=== PATIENT | female | born 1985 | race Hispanic/Latino ===

== ENCOUNTER 2016-12-12 21:39 | Emergency (ER) | payer OTHER ==
[2016-12-12 22:01] VITALS: BMI 35.5
[2016-12-12 22:03] VITALS: RESP 18; TEMP 97.8
--- NOTE | 2016-12-12 22:58 | ED PDOC ---
Arrival/HPI - General Chief Complaint: Abdominal Pain Time Seen by Provider: 12/12/16 22:41 Historian: Patient - History of Present Illness Narrative History of Present Illness (Text): 12/12/16 22:57 Rosalind Lazo is a 31 year old female, whose past medical history includes appendectomy and gallstones, who presents to the ED complaining of intermittent upper abdominal/epigastric pain for 1 month. Patient states pain is worsened after eating. Patient reports associated nausea with vomiting last week. Patient has been on omeprazole which she needs. Patient denies any fever, chills, diarrhea, chest pain, urinary symptoms, back pain, headache, dizziness, or any other complaints. PMD: Dr. Tanvir Alanis Symptom Onset: Gradual Symptom Course: Unchanged Activities at Onset: Rest, Light Context: Home Past Medical History - Provider Review Nursing Documentation Reviewed: Yes - Infectious Disease Hx of Infectious Diseases: None - Tetanus Immunization Tetanus Immunization: Up to Date - Past Medical History Past Medical History: No Previous - Cardiac Hx Cardiac Disorders: No - Pulmonary Hx Respiratory Disorders: No - Neurological Hx Neurological Disorder: No - HEENT Hx HEENT Disorder: No Hx Sinusitis: Yes - Renal Hx Renal Disorder: No - Endocrine/Metabolic Hx Endocrine Disorders: No - Hematological/Oncological Hx Blood Disorders: No - Integumentary Hx Dermatological Disorder: No - Musculoskeletal/Rheumatological Hx Musculoskeletal Disorders: No - Gastrointestinal Hx Gastrointestinal Disorders: Yes Hx Gall Bladder Disease: Yes (gall stone) - Genitourinary/Gynecological Hx Genitourinary Disorders: No - Psychiatric Hx Psychophysiologic Disorder: No Hx Substance Use: No - Surgical History Hx Appendectomy: Yes - Anesthesia Hx Anesthesia: Yes Hx Anesthesia Reactions: No Hx Malignant Hyperthermia: No - Suicidal Assessment Feels Threatened In Home Enviroment: No Family/Social History - Physician Review Nursing Documentation Reviewed: Yes Family/Social History: No Known Family HX Smoking Status: Former Smoker Hx Alcohol Use: No Hx Substance Use: No Hx Substance Use Treatment: No Allergies/Home Meds Allergies/Adverse Reactions: Allergies Penicillins Allergy (Verified 12/12/16 22:20) RASH Review of Systems - Physician Review All systems were reviewed & negative as marked: Yes - Review of Systems Constitutional: Normal. absent: Fevers Eyes: Normal ENT: Normal Respiratory: Normal. absent: SOB, Cough Cardiovascular: Normal. absent: Chest Pain Gastrointestinal: Abdominal Pain, Nausea, Vomiting. absent: Diarrhea Genitourinary Female: Normal. absent: Dysuria, Frequency, Hematuria, Urine Output Changes Musculoskeletal: Normal. absent: Back Pain, Neck Pain Skin: Normal. absent: Rash Neurological: Normal. absent: Headache, Dizziness Endocrine: Normal Hemo/Lymphatic: Normal Psychiatric: Normal Physical Exam Vital Signs Reviewed: Yes Vital Signs Temp Pulse Resp BP Pulse Ox 12/13/16 01:53 97.8 F 78 122/76 98 12/12/16 22:02 97.8 F 69 18 113/73 99 Temperature: Afebrile Blood Pressure: Normal Pulse: Regular Respiratory Rate: Normal Appearance: Positive for: Well-Appearing, Non-Toxic, Comfortable Pain Distress: None Mental Status: Positive for: Alert and Oriented X 3 - Systems Exam Head: Present: Atraumatic, Normocephalic Pupils: Present: PERRL Extroacular Muscles: Present: EOMI Conjunctiva: Present: Normal Mouth: Present: Moist Mucous Membranes Neck: Present: Normal Range of Motion Respiratory/Chest: Present: Clear to Auscultation, Good Air Exchange. No: Respiratory Distress, Accessory Muscle Use Cardiovascular: Present: Regular Rate and Rhythm, Normal S1, S2. No: Murmurs Abdomen: Present: Normal Bowel Sounds. No: Tenderness, Distention, Peritoneal Signs Back: Present: Normal Inspection Upper Extremity: Present: Normal Inspection. No: Cyanosis, Edema Lower Extremity: Present: Normal Inspection. No: Edema Neurological: Present: GCS=15, CN II-XII Intact, Speech Normal Skin: Present: Warm, Dry, Normal Color. No: Rashes Psychiatric: Present: Alert, Oriented x 3, Normal Insight, Normal Concentration Medical Decision Making ED Course and Treatment: 12/12/16 22:57 Impression: 31 y/o female c/o upper/epigastric pain intermittently for 1 month. Differential Diagnosis included but are not limited to: gastritis vs. biliary colic Plan: -- US Gallbladder and Pancreas -- Labs, lipase -- UA -- IV fluids -- Pepcid -- Reassess and disposition Prior Visits: Notes and results from previous visits were reviewed. On 08/07/2015, pt was seen in the ED for bilateral eye itching with erythma and yellow discharge. Pt was d/c home. 12/13/16 00:02 Reviewed sono, US Gallbladder and Pancreas shows: Multiple stones within an otherwise unremarkable gallbladder. Fatty infiltration of an enlarged liver. Limited evaluation of the pancreas, secondary to overlying bowel gas. 12/13/16 01:10 On re-evaluation, patient is resting comfortably, and is in no acute distress. Patient is stable for d/c. Patient was instructed to follow up with PMD in 1-2 days for further evaluation or to return to the ED if he develops any new/ worsening symptoms. - Lab Interpretations Lab Results: 12/12/16 23:30 12/12/16 23:30 Lab Results 12/12/16 23:30: Urine Color Yellow, Urine Appearance Clear, Urine pH 6.5, Ur Specific [place] 1.025, Urine Protein Negative, Urine Glucose (UA) Negative, Urine Ketones Negative, Urine Blood Negative, Urine Nitrate Negative, Urine Bilirubin Negative, Urine Urobilinogen 0.2, Ur Leukocyte Esterase Negative, Urine HCG, Qual Negative 12/12/16 23:30: WBC 9.7 D, RBC 4.79, Hgb 14.9, Hct 41.3, MCV 86.2, MCH 31.1, MCHC 36.1, RDW 12.0, Plt Count 277, MPV 9.6 12/12/16 23:30: Sodium 140, Potassium 4.5, Chloride 104, Carbon Dioxide 29, Anion Gap 12, BUN 13, Creatinine 0.8, Est GFR ( Amer) > 60, Est GFR (Non- Af Amer) > 60, Random Glucose 86, Calcium 9.3, Total Bilirubin 0.7, AST 24, ALT 48, Alkaline Phosphatase 67, Total Protein 7.5, Albumin 4.3, Globulin 3.1, Albumin/Globulin Ratio 1.4, Lipase 76 I have reviewed the lab results: Yes - RAD Interpretation Narrative RAD Interpretations (Text): US Gallbladder and Pancreas shows: Liver: Increased in echogenicity and size measuring 18 cm in greatest dimension. No intrahepatic bile duct dilation. Gallbladder: Multiple stones are identified within an otherwise unremarkable gallbladder. Common bile duct: No stones. No dilation, measuring 4.3 mm. Pancreas: Visualization of the pancreas is limited by overlying bowel gas. Right kidney: Unremarkable echogenicity and size measuring 11.5 x 4.8 x 5.1 No obstructing stones. No solid mass. No hydronephrosis. The visualized abdominal aorta is non-aneurysmal. The IVC is patent. IMPRESSION: Multiple stones within an otherwise unremarkable gallbladder. Fatty infiltration of an enlarged liver. Limited evaluation of the pancreas, secondary to overlying bowel gas. Radiology Orders: 12/12/16 22:58 GALLBLADDER & PANCREAS [US] Stat Pmo Business Analyst: Radiologist - Medication Orders Current Medication Orders: Discontinued Medications Famotidine (Pepcid) 20 mg IVP STAT STA Stop: 12/12/16 23:01 Last Admin: 12/13/16 01:16 Dose: 20 mg Sodium Chloride (Sodium Chloride 0.9%) 1,000 mls @ 999 mls/hr IV .Q1H1M STA Stop: 12/13/16 00:00 Last Admin: 12/13/16 01:15 Dose: 999 mls/hr - Scribe Statement The provider has reviewed the documentation as recorded by the Erna Dove Provider Attestation: All medical record entries made by the [place] were at my direction and personally dictated by me. I have reviewed the chart and agree that the record accurately reflects my personal performance of the history, physical exam, medical decision making, and the department course for this patient. I have also personally directed, reviewed, and agree with the discharge instructions and disposition. Disposition/Present on Arrival - Present on Arrival Any Indicators Present on Arrival: No History of DVT/PE: No History of Uncontrolled Diabetes: No Urinary Catheter: No History of Decub. Ulcer: No History Surgical Site Infection Following: None - Disposition Have Diagnosis and Disposition been Completed?: Yes Diagnosis: Gastritis Disposition: HOME/ ROUTINE Disposition Time: 01:03 Patient Plan: Discharge Condition: GOOD Discharge Instructions (ExitCare): Gastritis (ED) Additional Instructions: Take meds as prescribed/follow up with your doctor this week Prescriptions: Omeprazole 20 mg PO DAILY #30 tablet.
[2016-12-12] MEDS ORDERED: Sodium Chloride 0.9% 1,000 ML IV STA (23:00)
--- NOTE | 2016-12-12 23:45 | US ---
EXAM: US Abdomen Limited, Right Upper Quadrant CLINICAL HISTORY: 31 years old, female; Pain; Abdominal pain; Generalized TECHNIQUE: Real-time ultrasound of the right upper quadrant with image documentation. COMPARISON: No relevant prior studies available. FINDINGS: Liver: Increased in echogenicity and size measuring 18 cm in greatest dimension. No intrahepatic bile duct dilation. Gallbladder: Multiple stones are identified within an otherwise unremarkable gallbladder. Common bile duct: No stones. No dilation, measuring 4.3 mm. Pancreas: Visualization of the pancreas is limited by overlying bowel gas. Right kidney: Unremarkable echogenicity and size measuring 11.5 x 4.8 x 5.1 No obstructing stones. No solid mass. No hydronephrosis. The visualized abdominal aorta is non-aneurysmal. The IVC is patent. IMPRESSION: Multiple stones within an otherwise unremarkable gallbladder. Fatty infiltration of an enlarged liver. Limited evaluation of the pancreas, secondary to overlying bowel gas.
[2016-12-13 00:17] LABS: HEMATOCRIT 41.3 % (36.0-48.0); MEAN CELL VOLUME 86.2 fL (80.0-105.0); MEAN CORPUSCULAR HEMOGLOBIN 31.1 pg (25.0-35.0); MEAN CORPUSCULAR HGB CONC 36.1 g/dl (31.0-37.0); MEAN PLATELET VOLUME 9.6 fl (7.0-11.0); WHITE BLOOD COUNT 9.7 10^3/ul (4.5-11.0)
[2016-12-13 00:18] LABS: PH,URINE 6.5 (4.7-8.0); URINE BILIRUBIN NEGATIVE (NEGATIVE); URINE BLOOD NEGATIVE (NEGATIVE); URINE GLUCOSE (UA) NEGATIVE (NEGATIVE); URINE KETONE NEGATIVE (NEGATIVE); URINE LEUKOCYTE ESTERASE NEGATIVE Leu/uL (NEGATIVE); URINE PROTEIN NEGATIVE mg/dL (<30 mg/dL); URINE UROBILINOGEN 0.2 E.U./dL (<1 E.U./dL)
[2016-12-13 00:25] LABS: URINE APPEARANCE CLEAR (CLEAR); URINE COLOR YELLOW (YELLOW)
[2016-12-13 00:26] LABS: ALB/GLOB RATIO 1.4 (1.1-1.8); ALKALINE PHOSPHATASE 67 U/L (38-133); ALT/SGPT 48 U/L (7-56); AST/SGOT 24 U/L (15-39); BILIRUBIN,TOTAL 0.7 mg/dL (0.2-1.3); BLOOD UREA NITROGEN 13 mg/dL (7-21); CALCIUM 9.3 mg/dL (8.4-10.5); CARBON DIOXIDE 29 mmol/L (21-33); CHLORIDE 104 mmol/L (98-107); GFR AFRICAN-AMERICAN > 60; GLUCOSE,RANDOM 86 mg/dL (70-110); LIPASE 76 U/L (23-300); POTASSIUM 4.5 mmol/L (3.6-5.0); SODIUM 140 mmol/L (132-148); TOTAL PROTEIN 7.5 g/dL (5.8-8.3)
[2016-12-13 01:54] VITALS: BP 122/76; PULSE 78; O2SAT 98
== END 2016-12-13 01:53 | disposition home or self-care (01) ==
LOC: ED 21:39
DX: K29.70 Gastritis, unspecified, without bleeding (principal)
CPT/HCPCS: 76705; 80053; 81003; 83690; 84703; 85027; 96361; 96374; 99282; J7040